=== PATIENT | female | born 2000 | race Caucasian/White ===

== ENCOUNTER 2022-12-18 09:36 | Outpatient (CLI) | payer OTHER, SELFPAY ==
[2022-12-18 10:22] LABS: Kit Draw Collected
== END 2022-12-18 09:37 | disposition home or self-care (01) ==
LOC: ANHGOSHLAB 09:37
PROVIDERS: PCP Family Medicine; Visit Provider Physician Assistant
DX: N91.2 Amenorrhea, unspecified (principal)
CPT/HCPCS: 36415

== ENCOUNTER 2022-12-27 15:47 | Outpatient (CLI) | payer OTHER, SELFPAY ==
[2023-01-02 11:17] LABS: Testosterone Total 32 ng/dL (2-45)
== END 2022-12-27 15:48 | disposition home or self-care (01) ==
LOC: ANHGOSHLAB 15:48
PROVIDERS: PCP Family Medicine; Visit Provider Physician Assistant
DX: N91.2 Amenorrhea, unspecified (principal)
CPT/HCPCS: 36415; 84403

== ENCOUNTER 2023-06-24 16:03 | Outpatient (CLI) | payer OTHER, SELFPAY ==
[2023-06-24 19:48] LABS: Alanine Aminotransferase 17 U/L (6-35); Albumin Level 4.3 g/dL (3.5-5.1); Alkaline Phosphatase 35 U/L (38-126); Anion Gap 6 mmol/L (8-16); Aspartate Amino Transferase 32 U/L (14-36); Bilirubin,Total 0.5 mg/dL (0.2-1.3); Blood Urea Nitrogen 10 mg/dL (7-17); Calcium 9.1 mg/dL (8.4-10.2); Carbon Dioxide 30 mmol/L (22-30); Chloride 102 mmol/L (98-107); Estimated Glomerular Filt Rate > 60; Glucose 92 mg/dL (65-110); Potassium 3.8 mmol/L (3.4-5.0); Sodium 138 mmol/L (137-145)
[2023-06-24 20:25] LABS: Basophils Absolute Auto 0.1 K/mm3 (0.0-0.1); Basophils Percent Auto 1.1 % (0.2-1.2); Eosinophils Absolute Auto 0.1 K/mm3 (0-0.3); Eosinophils Percent Auto 1.3 % (0-4.4); Hematocrit 41.2 % (37.0-47.0); Hemoglobin 13.6 g/dL (12.0-15.0); Immature Granulocyte Absolute 0.03 K/mm3 (0.00-0.031); Immature Granulocyte Percent A 0.4 % (0-0.5); Lymphocytes Absolute Auto 2.61 K/mm3 (0.9-3.2); Lymphocytes Percent Auto 30.6 % (18.3-44.2); Mean Corpuscular Hemoglobin 29.4 pg (26-34); Mean Platelet Volume 11.4 fl (7.4-10.4); Monocytes Absolute Auto 0.9 K/mm3 (0.1-0.6); Monocytes Percent Auto 10.3 % (2.6-8.5); Neutrophils Absolute Auto 4.8 K/mm3 (1.3-6.7); Neutrophils Percent Auto 56.3 % (45.5-73.1); Platelet Count Result 267 k/mm3 (150-375); Red Blood Count 4.63 M/mm3 (4.2-5.4); Red Cell Distribution Width 11.7 % (11.5-14.5); White Blood Count 8.5 K/mm3 (4.5-10.0)
[2023-06-24 20:31] LABS: Monoscreen Negative (Negative); Negative Monotest Control Negative (Negative); Positive Monotest Control Positive (Positive)
== END 2023-06-24 16:04 | disposition home or self-care (01) ==
LOC: ANHGOSHLAB 16:05
PROVIDERS: PCP Family Medicine; Visit Provider Nurse Practitioner Family
DX: Z20.828 Contact with and (suspected) exposure to other viral communicable diseases (principal)
CPT/HCPCS: 36415; 80053; 85025; 86308

== ENCOUNTER 2024-08-14 16:41 | Emergency (ER) | payer OTHER, SELFPAY ==
[2024-08-14 16:54] VITALS: BP 127/87; PULSE 88; RESP 16; TEMP 36.6; O2SAT 98
--- NOTE | 2024-08-14 17:04 | ED.URI ---
HPI - URI/Sore Throat General Chief Complaint: Upper Respiratory Infection Stated Complaint: Strep Test Time Seen by Provider: 08/14/24 17:04 Source: patient Mode of arrival: ambulatory Limitations: no limitations History of Present Illness HPI Narrative: 24-year-old female presents with complaint of sore throat for 3-4 days. Patient reports fatigue, headaches, chills. Patient has been on doxycycline for approximately 5 days for sinus infection. Reports congestion improving. Concerned she may now have strep throat. Patient's sister is a physician in [place]. Her a prescription for the doxycycline when patient was visiting earlier this week. Patient's sister would like her to get a strep swab prior to treating with antibiotics. All systems reviewed and negative except as noted above. Related Data Home Medications Medication Instructions Recorded Confirmed doxycycline hyclate 100 mg capsule mg 08/14/24 08/14/24 Allergies Allergy/AdvReac Type Severity Reaction Status Date / Time amoxicillin Allergy Unknown family Verified 08/14/24 16:56 allergy Review of Systems Review of Systems: CONSTITUTIONAL: Denies fever. Reports chills, fatigue EYES: Denies visual changes, redness, or discharge. ENT: Denies rhinorrhea, congestion. Reports sore throat. Denies otalgia. CARDIOVASCULAR: Denies chest pain, palpitations, or edema. RESPIRATORY: Denies cough or dyspnea. GASTROINTESTINAL: Denies abdominal pain, nausea, vomiting, or diarrhea. GENITOURINARY: Denies dysuria or hematuria. SKIN: Denies rash or itching. MUSCULOSKELETAL: Denies back pain, joint pain, or myalgia. NEUROLOGIC: Reports headache. Denies numbness, or weakness. PSYCHIATRIC: Denies anxiety or depression. All other systems reviewed are negative, except as documented in HPI. [facility] Past Medical History Medical History Fibroadenoma of left breast Family History Family History Other Family history of elevated blood lipids Social History Social History Smoking status: Never smoker Alcohol intake: current Alcohol use details: socially Substance use: never Lack of Transportation: No Lack of Food: Never True Current Housing: I Have Housing Concerned About Future Housing: No Difficulty Paying Gas/Electric Bills: No Difficulty Paying for Meds: No Currently Unemployed: No Education: Bachelor's Degree Difficulty w/ Childcare or Family Care: No Comments At time of signature, agree with nursing past medical, surgical, social and family history. There is no relevant family history pertinent to the presenting complaint. Exam Narrative: GENERAL: This is a well-nourished, well-developed patient, in no apparent distress. HEAD: normocephalic, atraumatic. EYES: PERRL. Sclera clear/white. Vision is grossly intact. EARS: External ears normal, auditory canals clear and without drainage, TMs normal without perforation. Hearing grossly intact. NOSE: External nose normal with no obvious nasal discharge, nares without redness, no rhinorrhea. THROAT: Mucous membranes moist, erythema, tonsils 1+ bilaterally with exudates NECK: Neck supple, non-tender without lymphadenopathy, masses or thyromegaly. CARDIOVASCULAR: Regular rate and rhythm without murmurs, gallops, or rubs. RESPIRATORY: Clear to auscultation. Breath sounds equal bilaterally. No wheezes, rales, or rhonchi. SKIN: warm, Dry, intact with no suspicious lesions or rash, good texture and turgor. NEURO: awake, alert, and oriented to person, place and time. There were no obvious focal neurologic abnormalities. EXTREMITIES: No joint tenderness, effusion, or edema noted. Course Course Level of Care: Express Care Visit Vital Signs Vital signs: Vital Signs Temperature 36.6 C 08/14/24 16:54 Pulse Rate 88 08/14/24 16:54 Respiratory Rate 16 08/14/24 16:54 Blood Pressure 127/87 08/14/24 16:54 Pulse Oximetry 98 08/14/24 16:54 Temperature 36.6 C 08/14/24 16:54 Pulse Rate 88 08/14/24 16:54 Respiratory Rate 16 08/14/24 16:54 Blood Pressure 127/87 08/14/24 16:54 Pulse Oximetry 98 08/14/24 16:54 Reviewed MDM - URI/Sore Throat MDM Narrative Medical decision making narrative: Patient is aware of diagnosis, understands and agrees to treatment plan. Anticipatory guidance given. Patient agrees to follow-up as directed and is aware of reasons to seek care at the emergency department. Portions of this record may have been created with voice recognition software Will treat patient for strep. throat due to patient's symptoms and exam findings. Patient agrees with plan of care. Patient is well-appearing, nontoxic. Differential Diagnosis Differential diagnosis: Likely upper respiratory infection, sinusitis, viral infection, influenza and pharyngitis Discharge Plan Discharge Clinical Impression: Strep throat Patient Disposition: Home, Self-Care Condition: Stable Instructions: Antibiotic Form, Strep Throat (ED) Additional Instructions: Your strep test was negative today. Due to her symptoms and exam findings I am prescribing an antibiotic today. Take antibiotic as prescribed until gone. Change toothbrush after taking antibiotic for 24 hours. Take Tylenol or ibuprofen every 6-8 hours as needed for pain and fever. Drink at least 64 oz of water a day. Follow-up with your primary care physician if symptoms are not improving. Prescriptions: New cephalexin 500 mg capsule 500 mg PO BID 7 Days Qty: 14 0RF No Action doxycycline hyclate 100 mg capsule norethindrone-e.estradiol-iron [10/05 (28)] 1 mg-20 mcg (21)/75 mg (7) tablet 1 tablet PO DAILY Qty: 84 0RF Rx Instructions: NEEDS APPOINTMENT FOR FURTHER REFILLS Follow-up/Referrals: PHYSICIAN,FINANCIAL ADVISOR TRAINEE [Primary Care Provider] - Time of Disposition: 17:16
[2024-08-14 17:15] LABS: EDSTREPNEGPOS1 Negative (Negative)
== END 2024-08-14 17:24 | disposition home or self-care (01) ==
PROVIDERS: Emergency Provider Nurse Practitioner Family
DX: J02.0 Streptococcal pharyngitis (principal)
CPT/HCPCS: 87081; 87880; 99213; G0463